=== PATIENT | female | born 1995 | race Hispanic/Latino ===

== ENCOUNTER 2018-06-13 08:07 | Emergency (ER) | payer MEDICAID, OTHER ==
[2018-06-13 09:03] LABS: BASOPHILS % (AUTO) 0.5 % (0.0-5.0); HEMATOCRIT 35.2 % (36-48); LYMPHOCYTES % (AUTO) 16.6 % (21.0-51.0); MEAN CORPUSCULAR HEMOGLOBIN 29.4 pg (27.0-33.0); MEAN CORPUSCULAR VOLUME 86.6 fL (79-99); MONOCYTES % (AUTO) 6.7 % (3.0-13.0); NEUTROPHILS % (AUTO) 75.2 % (40.0-77.0); PLATELET COUNT (AUTO) 471 K/uL (130-400); RED BLOOD CELL COUNT(AUTO) 4.06 MIL/uL (4.00-5.50); RED CELL DISTRIBUTION WIDTH 12.8 % (11.0-15.5); WHITE BLOOD COUNT (AUTO) 13.8 K/uL (4.8-10.8)
[2018-06-13 09:03] LABS: BILIRUBIN,URINE Negative (NEGATIVE); COLOR,URINE Yellow (YELLOW); GLUCOSE, URINE (UA) Negative (NEGATIVE); KETONES,URINE Negative (NEGATIVE); LEUKOCYTE ESTERASE ,URINE Trace (NEGATIVE); NITRATE,URINE Negative (NEGATIVE); OCCULT BLOOD,URINE Moderate (NEGATIVE); PH,URINE 5.5 (5.0-8.0); PROTEIN,URINE Negative (NEGATIVE)
[2018-06-13 09:08] LABS: INR 1.01 (0.85-1.15); PROTHROMBIN TIME 10.6 SEC (9.6-11.6)
[2018-06-13 09:17] LABS: APPEARANCE,URINE SLIGHTLY CLOUDY (CLEAR)
[2018-06-13 09:19] LABS: HCG,QUAL RESULT NEGATIVE (NEGATIVE)
[2018-06-13 09:27] LABS: BACTERIA,URINE Rare /HPF (None Seen); RBC,URINE 0-1 /HPF (0-1); SQUAMOUS EPITHELIAL CELL,UR Few /HPF (0-2); WBC,URINE 0-1 /HPF (0-1)
[2018-06-13] MEDS ORDERED: CLINDAMYCIN 600 MG/D5% WATER 50 ML IV ONE (09:33)
[2018-06-13] MEDS ORDERED: METHYLPREDNISOLONE SOD SUCC 125MG/2ML VIAL ONE (09:33)
[2018-06-13] MEDS ORDERED: KETOROLAC TROMETHAMINE 30MG/ML ONE (09:33)
[2018-06-13 09:57] LABS: CREATININE 0.7 mg/dL (0.5-1.5); POTASSIUM 3.6 mmol/L (3.5-5.1)
[2018-06-13 10:03] LABS: ALBUMIN 3.4 g/dL (3.5-5.0); BILIRUBIN,TOTAL 0.6 mg/dL (0.2-1.0); TOTAL PROTEIN, SERUM 8.6 g/dL (6.0-8.3)
[2018-06-13 10:07] LABS: ERYTHROCYTE SEDIMENTATION RATE 80 MM/HR (0-20)
[2018-06-13 10:18] LABS: CRP QUANTITATIVE 111.9 mg/L (0.00-9.0)
== END 2018-06-13 10:31 | disposition home or self-care (01) ==
LOC: EDH 08:07
DX: L52 Erythema nodosum (principal); J02.9 Acute pharyngitis, unspecified
CPT/HCPCS: 36415; 80053; 81001; 81025; 82550; 85025; 85610; 85651; 85730; 86140; 86308; 87040 ×2; 87880; 93005; 96365; 96375; 99284; J1885; J2930; J3490

== ENCOUNTER 2020-12-27 13:47 | Observation (INO) | payer MEDICAID ==
[~2020-12-27] VITALS: Ht 162.6 cm; Wt 69.9 kg
[2020-12-27 14:26] LABS: HEMATOCRIT 31.3 % (36-48); MEAN CORPUSCULAR HGB CONC 34.8 g/dL (32.0-36.0); MEAN CORPUSCULAR VOLUME 86.2 fL (79-99); RED BLOOD CELL COUNT(AUTO) 3.63 MIL/uL (4.00-5.50); WHITE BLOOD COUNT (AUTO) 12.2 K/uL (4.8-10.8)
[2020-12-27 14:34] LABS: APPEARANCE,URINE SL CLOUDY (CLEAR); BILIRUBIN,URINE SMALL (NEGATIVE); COLOR,URINE YELLOW (YELLOW); GLUCOSE, URINE (UA) NEGATIVE (NEGATIVE); KETONES,URINE 40 mg/dL (NEGATIVE); LEUKOCYTE ESTERASE ,URINE NEGATIVE (NEGATIVE); NITRATE,URINE NEGATIVE (NEGATIVE); OCCULT BLOOD,URINE LARGE (NEGATIVE); PROTEIN,URINE 30 mg/dL (NEGATIVE); UROBILINOGEN,URINE 0.2 mg/dL (0.2-1.0)
[2020-12-27] MEDS ORDERED: MEPERIDINE-PF 50 MG/ML SYG ONE (14:58)
[2020-12-27] MEDS ORDERED: PROMETHAZINE HCL 25 MG/ML 1ML AMPULE IM PRN ×2 (15:00→19:30)
[2020-12-27] MEDS ORDERED: MEPERIDINE-PF 50 MG/ML SYG IVP SCH ×2 (15:00→17:00)
[2020-12-27 15:20] LABS: BACTERIA,URINE Few /HPF (None Seen); MUCUS,URINE Few LPF (None Seen); RBC,URINE 26-50 /HPF (0-1); SQUAMOUS EPITHELIAL CELL,UR Few /HPF (0-2)
[2020-12-27] MEDS ORDERED: CEFTRIAXONE 1G VIAL ONE (16:21)
[2020-12-27] MEDS ORDERED: CEFTRIAXONE 1G VIAL IVP ONE (16:30)
[2020-12-27] MEDS: LACTATED RINGERS 1000ML 1,000 ML IV SCH ×2 (17:25→19:33)
[2020-12-27] MEDS ORDERED: LACTATED RINGERS 1000ML 1,000 ML IV ONE (17:27)
[2020-12-27] MEDS ORDERED: MEPERIDINE-PF 50 MG/ML SYG IVP PRN (18:30)
[2020-12-27] MEDS ORDERED: PROMETHAZINE HCL 25 MG/ML 1ML AMPULE IM ONE (18:30)
[2020-12-27] MEDS ORDERED: PHENAZOPYRIDINE HCL 200 MG TABLET PO PRN (18:30)
[2020-12-27 19:31] VITALS: BP 107/58
[2020-12-27] MEDS ORDERED: ONDANSETRON 4MG INJ IVP PRN (20:30)
[2020-12-27] MEDS ORDERED: PREN1TAB80 PO (21:42)
[2020-12-27] MEDS ORDERED: IRON (21:43)
[2020-12-27 22:56] VITALS: BP 110/68
[2020-12-28] MEDS: LACTATED RINGERS 1000ML 1,000 ML IV SCH ×3 (03:07→18:32)
[2020-12-28 03:37] VITALS: BP 91/51
[2020-12-28 07:30] VITALS: BP 96/55
[2020-12-28] MEDS: PHENAZOPYRIDINE HCL 200 MG TABLET PO SCH ×3 (09:30→21:57)
[2020-12-28 11:18] VITALS: BP 96/57
[2020-12-28 13:05] LABS: BASOPHILS % (AUTO) 0.2 % (0.0-5.0); EOSINOPHILS % (AUTO) 0.6 % (0.0-8.0); HEMATOCRIT 26.4 % (36-48); MEAN CORPUSCULAR HEMOGLOBIN 30.4 pg (27.0-33.0); MEAN CORPUSCULAR HGB CONC 34.1 g/dL (32.0-36.0); MEAN CORPUSCULAR VOLUME 89.2 fL (79-99); MONOCYTES % (AUTO) 5.3 % (3.0-13.0); NEUTROPHILS % (AUTO) 71.7 % (40.0-77.0); PLATELET COUNT (AUTO) 239 K/uL (130-400); RED BLOOD CELL COUNT(AUTO) 2.96 MIL/uL (4.00-5.50); RED CELL DISTRIBUTION WIDTH 13.1 % (11.0-15.5); WHITE BLOOD COUNT (AUTO) 8.4 K/uL (4.8-10.8)
[2020-12-28] MEDS: CEFTRIAXONE 1G VIAL IVP SCH (15:09)
[2020-12-28 15:29] VITALS: BP 94/55
[2020-12-28 19:33] VITALS: BP 100/57
[2020-12-28 23:50] VITALS: BP 107/67
[2020-12-29] MEDS: LACTATED RINGERS 1000ML 1,000 ML IV SCH ×2 (01:18→06:35)
[2020-12-29 03:25] VITALS: BP 91/51
[2020-12-29 07:18] VITALS: BP 101/63
[2020-12-29] MEDS: PHENAZOPYRIDINE HCL 200 MG TABLET PO SCH ×2 (09:05→14:20)
[2020-12-29 11:05] VITALS: BP 103/59
[2020-12-29] MEDS: CEFTRIAXONE 1G VIAL IVP SCH (14:21)
== END 2020-12-29 16:50 | disposition home or self-care (01) ==
LOC: EDH 13:47 → LDH 14:08 → WSH 18:52
PROVIDERS: ADMIT Obstetrics & Gynecology; ATTEND Obstetrics & Gynecology
DX: O23.02 Infections of kidney in pregnancy, second trimester (principal); O26.893 Other specified pregnancy related conditions, third trimester; R10.30 Lower abdominal pain, unspecified; R31.9 Hematuria, unspecified; O21.2 Late vomiting of pregnancy; Z3A.20 20 weeks gestation of pregnancy
CPT/HCPCS: 36415 ×2; 76705; 76770; 76805; 81001; 85025; 85027; 87088; 96361 ×4; 96372; 96374; 96375; 96376 ×3; A4351; G0378 ×51; G0379; J0696 ×3; J2175 ×3; J2550; J7120 ×6; 96360

== ENCOUNTER 2021-04-30 10:05 | Observation (INO) | payer MEDICAID ==
[~2021-04-30] VITALS: Ht 154.9 cm; Wt 74.4 kg
[~2021-04-30 10:05] MED LIST: IRON; PREN1TAB80 PO
[2021-04-30 10:12] VITALS: BP 129/82
[2021-04-30] MEDS ORDERED: LACTATED RINGERS 1000ML 1,000 ML IV SCH (11:00)
== END 2021-04-30 12:05 | disposition home or self-care (01) ==
LOC: EDH 10:05 → LDH 10:19
PROVIDERS: ADMIT Obstetrics & Gynecology; ATTEND Obstetrics & Gynecology
DX: O62.9 Abnormality of forces of labor, unspecified (principal); Z3A.38 38 weeks gestation of pregnancy
CPT/HCPCS: 59025; 96360; G0378; G0379; J7120

== ENCOUNTER 2022-11-27 04:15 | Emergency (ER) | payer MEDICAID ==
[~2022-11-27] VITALS: Ht 154.9 cm; Wt 77.6 kg
[2022-11-27 05:58] LABS: BASOPHILS # (AUTO) 0.03 K/uL (0.00-0.20); BASOPHILS % (AUTO) 0.4 % (0.0-5.0); EOSINOPHILS # (AUTO) 0.17 K/uL (0.00-0.70); EOSINOPHILS % (AUTO) 2.3 % (0.0-8.0); IMMATURE GRANULOCYTE ABSOLUTE 0.07 K/uL (0-1); LYMPHOCYTES # (AUTO) 1.8 K/uL (1.0-4.8); LYMPHOCYTES % (AUTO) 24.8 % (21.0-51.0); MEAN CORPUSCULAR HEMOGLOBIN 28.9 pg (27.0-33.0); MEAN CORPUSCULAR HGB CONC 33.9 g/dL (32.0-36.0); MEAN CORPUSCULAR VOLUME 85.2 fL (79-99); MONOCYTES # (AUTO) 0.7 K/uL (0.1-1.0); MONOCYTES % (AUTO) 9.7 % (3.0-13.0); NEUTROPHILS # (AUTO) 4.5 K/uL (1.8-7.7); NEUTROPHILS % (AUTO) 61.8 % (40.0-77.0); PLATELET COUNT (AUTO) 256 K/uL (130-400); RED BLOOD CELL COUNT(AUTO) 4.46 MIL/uL (4.00-5.50); RED CELL DISTRIBUTION WIDTH 12.8 % (11.0-15.5); WHITE BLOOD COUNT (AUTO) 7.3 K/uL (4.8-10.8)
[2022-11-27] MEDS ORDERED: ONDANSETRON 4MG INJ IVP ONE (06:00)
[2022-11-27] MEDS ORDERED: LACTATED RINGERS 1000ML 1,000 ML IV ONE (06:00)
[2022-11-27] MEDS ORDERED: MORPHINE 4 MG SYG IVP ONE (06:00)
[2022-11-27 06:08] LABS: APPEARANCE,URINE CLEAR (CLEAR); BILIRUBIN,URINE NEGATIVE (NEGATIVE); COLOR,URINE LIGHT-YELLOW (YELLOW); GLUCOSE, URINE (UA) NEGATIVE (NEGATIVE); KETONES,URINE NEGATIVE (NEGATIVE); LEUKOCYTE ESTERASE ,URINE NEGATIVE Leu/uL (NEGATIVE); NITRATE,URINE NEGATIVE (NEGATIVE); OCCULT BLOOD,URINE LARGE (NEGATIVE); PROTEIN,URINE NEGATIVE (NEGATIVE); UROBILINOGEN,URINE 0.2 mg/dL (0.2-1.0)
[2022-11-27 06:11] LABS: ADD UA MICROSCOPIC YES
[2022-11-27 06:14] LABS: ALBUMIN 3.9 g/dL (3.5-5.0); BILIRUBIN,TOTAL 0.3 mg/dL (0.2-1.0); CREATININE 0.8 mg/dL (0.5-1.5); MUCUS,URINE RARE LPF (None Seen); POTASSIUM 3.3 mmol/L (3.5-5.1); RBC,URINE 26-50 /HPF (0-1); SQUAMOUS EPITHELIAL CELL,UR RARE /HPF (0-2); TOTAL PROTEIN, SERUM 7.7 g/dL (6.0-8.3)
[2022-11-27] MEDS ORDERED: IBUP-2070 PO (09:08)
[2022-11-27 09:19] VITALS: BP 102/69; PULSE 60; RESP 18; O2SAT 99
== END 2022-11-27 09:27 | disposition home or self-care (01) ==
LOC: EDH 04:15
DX: R10.9 Unspecified abdominal pain (principal)
CPT/HCPCS: 99285; 96374; 76705; 96361; 96375; 80053; 83690; 85025; 81001; 81025; 36415; J7120; J2405; J2270